=== PATIENT | male | born 1940 | race Caucasian/White ===

== ENCOUNTER 2021-10-31 16:07 | Emergency (ER) | payer MEDICARE, BC ==
[2021-10-31] MEDS ORDERED: Diphtheria,Pertussis(Acell),Tetanus Vaccine 0.5 ML Syringe IM ONE (16:49)
[2021-10-31] MEDS ORDERED: Lidocaine 1% with EPINEPHrine 1:100,000 50 ML MDV SUBCUT STA (16:49)
[2021-10-31] MEDS ORDERED: Bacitracin Oint 1 GM U/D Packet TOP ONE (16:49)
== END 2021-10-31 17:28 | disposition home or self-care (01) ==
LOC: JP.ED 16:07
DX: S81.012A Laceration without foreign body, left knee, initial encounter (principal); Z23 Encounter for immunization; W26.8XXA Contact with other sharp object(s), not elsewhere classified, initial encounter
CPT/HCPCS: 12004; 90471; 90715; 99281; 99282-25